=== PATIENT | male | born 1960 | race Caucasian/White ===

== ENCOUNTER → 2016-12-20 19:50 | Outpatient (CLI) | payer OTHER, MEDICARE ==
[2012-09-04 06:06] VITALS: BMI 33.3
[2016-12-22 11:11] LABS: HEPATITIS C ANTIBODY <0.1 (0.0-0.9)
[2016-12-23 16:07] LABS: TESTOSTERONE - SERUM 305 ng/dL (348-1197)
== END | disposition home or self-care (01) ==
LOC: D.LABREF 19:50
PROVIDERS: Family Medicine
DX: Z11.59 Encounter for screening for other viral diseases (principal); E29.1 Testicular hypofunction

== ENCOUNTER → 2016-12-21 15:54 | Outpatient (CLI) | payer OTHER, BC ==
[2012-09-04 06:06] VITALS: BMI 33.3
[2016-12-21 16:10] LABS: ALBUMIN 4.2 g/dL (3.4-5.0); ANION GAP 15.2 mmol/L (8-16); BILIRUBIN - DIRECT 0.07 mg/dL (0.00-0.30); BILIRUBIN - INDIRECT 0.37 mg/dL (0.00-1.00); BILIRUBIN - TOTAL 0.44 mg/dL (0.2-1.3); CALCIUM 9.2 mg/dL (8.5-10.1); CARBON DIOXIDE 27.9 mmol/L (21.0-32.0); CHOL - HDL RATIO 3.1 ratio (2.3-4.9); CREATININE - SERUM 1.2 mg/dL (0.6-1.3); LDL-HDL RATIO 1.6 ratio (1.5-3.5); POTASSIUM - SERUM 5.1 mmol/L (3.5-5.1); PROTEIN - SERUM 7.3 g/dL (6.4-8.2)
== END | disposition home or self-care (01) ==
LOC: D.LABREF 15:54
PROVIDERS: Family Medicine
DX: Z13.6 Encounter for screening for cardiovascular disorders (principal); E78.5 Hyperlipidemia, unspecified

== ENCOUNTER 2018-02-06 06:26 | Day surgery (SDC) | payer OTHER ==
[~2018-02-06] VITALS: Ht 175.3 cm; Wt 117.9 kg
--- NOTE | ~2018-02-06 | OP ---
PATIENT NAME: TOM CERVANTES MEDICAL RECORD: [id number] :62 LOCATION:D.OPS ADMISSION DATE: SURGEON: ARNEL PENALOZA MD DATE OF OPERATION: 02/06/2018 SURGEON: Arnel Penaloza MD ANESTHESIA: MAC by Thien Josue CRNA. PREOPERATIVE DIAGNOSIS: Elevated PSA of 5. PROCEDURE PERFORMED: Transrectal ultrasound and prostate biopsy. FINDINGS: 20 gram prostate. Large median lobe. No hypoechoic areas. SPECIMENS: Prostate biopsy cores. BLOOD LOSS: Minimal. CLINICAL HISTORY: This is a 57-year-old male, who is taking testosterone supplementation for several years. He has documented low serum testosterone levels. His PSA in April of 2017 was 0.75. In December of this year, the PSA was obtained and it was up to 5.0. It was repeated 1 week later and the PSA was still over 4. He comes now to have a prostate biopsy. There is no family history of prostate cancer. He is allergic to PENICILLIN. He was given Levaquin IV extrusion bender to the OR. DESCRIPTION OF PROCEDURE: The patient was given IV sedation. He was placed in the dorsal lithotomy position and prepped and draped. The transrectal ultrasound probe was introduced and prostate size measurements were obtained. The prostate was rather flat and broad. There was a prominent median lobe, which was seen. No hypoechoic areas were seen. Sextant biopsies were obtained with at least 3 cores from each sextant. Once the specimens were all obtained, the procedure was terminated. RECOMMENDATIONS: The patient will be going home today. I will see him in followup next week to review the pathology results with him. TRANSINT:[id number] Voice Confirmation ID: [id number] DOCUMENT ID: [id number] ARNEL PENALOZA MD at 1037 CC: [id number] DICTATION DATE: 02/06/18 1007 MANAGER MULTICULTURAL: 02/06/18 1052 [facility] 02/06/18 [place] [address]
[~2018-02-06 06:26] MED LIST: LEVOTHYROXINE100 MCG PO; LIPITOR40 MG PO; PROTONIX40 MG PO
[2018-02-06 06:58] LABS: HEMATOCRIT 48.9 % (42.0-54.0); HEMOGLOBIN 16.9 g/dL (13.5-17.5); MCH 30.1 pg (26.0-34.0); MCHC 34.6 g/dL (31.0-37.0); MCV 87.2 fL (80.0-100.0); MEAN PLATELET VOLUME 10.6 fL (7.4-10.4); RBC 5.61 10x6/uL (4.20-6.10); RDW 13.6 % (11.5-14.5); WBC 7.9 10x3/uL (4.8-10.8)
[2018-02-06 08:16] VITALS: BP 127/87; Ht 175.3 cm; Wt 117.9 kg
== END 2018-02-06 11:25 | disposition home or self-care (01) ==
LOC: D.OPS 06:26 → D.PAN 12:15
PROVIDERS: Anesthesiology
DX: R97.20 Elevated prostate specific antigen [PSA] (principal); E03.9 Hypothyroidism, unspecified; K21.9 Gastro-esophageal reflux disease without esophagitis; Z01.812 Encounter for preprocedural laboratory examination; E66.01 Morbid (severe) obesity due to excess calories; Z68.38 Body mass index [BMI] 38.0-38.9, adult

== ENCOUNTER 2018-09-12 07:42 | Outpatient (CLI) | payer OTHER ==
[~2018-09-12] VITALS: Ht 175.3 cm; Wt 122.7 kg
--- NOTE | ~2018-09-12 | HEMODYNAMI ---
PATIENT:TOM CERVANTES MEDICAL RECORD: [id number] : 62 LOCATION:ALEXANDRA ADMISSION DATE: 09/12/18 Generatedon:09/12/201810:42 Patient name: TOM CERVANTES Patient #: [id number] SSN: : 1960 Date of study: 09/12/2018 Page: Of Hemodynamic Procedure Report Patient Data Patient Demographics Procedure consent was obtained First Name: TOM Gender: Male Last Name: BILLY : 1960 [facility] Initial: KEELEY Age: 57 year(s) Patient #: [id number] Race: Unknown Additional ID: [id number] Contact details Address: [place] State: [place] City: [place] Zip code: [address] Past Medical History Allergies Allergen Reaction Date Comments Reported Other allergy 09/12/2018 N Admission Admission Data Admission Date: 09/12/2018 Admission Time: 7:42 Height (in.): 70 BSA: 2.37 (m2) Height (cm.): 177.8 BMI: 38.74 (kg/m2) Weight (lbs.): 270 Weight (kg.): 122.47 Lab Results Lab Result Date: 09/12/2018 Lab Result Time: 0:00 Biochemistry Name Units Result Min Max BUN mg/dl 16 --(---*)-- 7 18 Creatinine mg/dl 1.3 --(---*)-- 0.6 1.3 CBC Name Units Result Min Max Hemoglobin g/dl 17 --(---*)-- 13.5 17.5 Procedure Procedure Types Cath Procedure Diagnostic Procedure LHC LHC w/Coronaries FFR/IVUS Intra-Coronary IVUS Initial Sedation Charges Moderate Sedation up to 15 minutes PCI Procedure Coronary Stent Coronary Stent Initial x2 Procedure Description Procedure Date Procedure Date: 09/12/2018 Procedure Start Time: 10:16 Procedure End Time: 10:35 Procedure Staff Name Function Luigi Sheriff MD Performing Physician Virginia Borja RT Monitor Sebastian Velazquez RN Nurse Virginia Borja RT Scrub Akua Dela Cruz RT Scrub Akua Dela Cruz RT Monitor Procedure Data Cath Procedure Fluoroscopy Diagnostic fluoroscopy Total fluoroscopy Time: 5.4 time: 5.4 min min Diagnostic fluoroscopy Total fluoroscopy dose: dose: 1558 mGy 1558 mGy Contrast Material Contrast Material Type Amount (ml) Isovue 300 133 Entry Location Entry Primary Successful Side Size Upsize Upsize Entry Closure Barron ccessful Closure Location (Fr) 1 (Fr) 2 (Fr) Remarks Device Remarks Radial Right 6 Fr Mechanical artery Short Compression Estimated blood loss: 5 ml Diagnostic catheters Device Type Used For End Catheter Placement DIAGNOSTIC [place] 110cm 5 Multi-vessel Fr catheter ([id number]) Angiography Procedure Complications No complications Procedure Medications Medication Administration Route Dosage Oxygen etCO2 Nasal cannula 2 l/min Lidocaine 2% added to field 20 Heparin Flush Bag added to field 2 bags (1000units/500ml NS) 0.9% NaCl I.V. 100 ml/hr Versed I.V. 2 mg Fentanyl I.V. 100 mcg Fentanyl I.V. 50 mcg Versed I.V. 1 mg Heparin Bolus I.V. 4000 units Versed I.V. 1 mg Fentanyl I.V. 50 mcg Radial Cocktail I.A. 1 syringe (Verapomil 2mg/Nitro 400mcg/Heparin 1500units) Hemodynamics Rest BSA: 2.37 (m2) O2 Consumption: Estimated: 278.53 (ml/min) O2 Consumption indexed : Estimated:117.52 (ml/min/m) Heart Rate: 68 (bpm) Pressure Samples Time Site Value (mmHg) Purpose Heart Use Rate(bpm) 10:19 LV 107/52,71 Snapshot 80 Snapshots Pre Cath Intra NCS Post Cath Vital Signs Time Heart Resp SPO2 etCO2 NIBP (mmHg) Rhythm Pain Sedation Rate (ipm) (%) (mmHg) Status Level (bpm) 9:51:27 70 20 96 0 132/93(105) NSR 0 (11) 10(A) , No pain 9:55:35 65 18 95 0 131/96(112) NSR 0 (11) 10(A) , No pain 9:59:47 71 17 95 0 122/79(102) NSR 0 (11) 10(A) , No pain 10:03:59 66 15 94 42 130/73(100) NSR 0 (11) 10(A) , No pain 10:12:39 70 13 94 15 161/63(118) NSR 0 (11) 9(A) , No pain 10:17:02 69 15 93 24.8 127/74(105) NSR 0 (11) 9(A) , No pain 10:21:59 65 13 93 15 128/67(109) NSR 0 (11) 9(A) , No pain 10:26:06 70 13 94 36 121/78(101) NSR 0 (11) 9(A) , No pain 10:30:18 73 13 96 32.3 137/72(109) NSR 0 (11) 9(A) , No pain 10:08:36 72 11 95 15.7 120/71(113) NSR 0 (11) 9(A) , No pain 10:36:53 71 13 94 36.8 137/81(104) NSR 0 (11) 10(A) , No pain Medications Time Medication Route Dose Verified Delivered Reason Not es Effectiveness by by 9:49:00 Oxygen etCO2 2 l/min Luigi Buffie used for Nasal Jaziel Velazquez RN procedure cannula 9:49:07 Lidocaine 2% added 20ml Luigi Buffie for local to vial Jaziel Velazquez RN anesthetic field 9:50:15 Heparin Flush added 2 bags Luigi Buffie used for Bag to Jaziel Velazquez RN procedure (1000units/500ml field NS) 9:50:24 0.9% NaCl I.V. 100 Luigi Buffie Per physician ml/hr Jaziel Velazquez RN 10:04:39 Versed I.V. 2 mg Luigi Buffie for sedation Jaziel Velazquez RN 10:04:44 Fentanyl I.V. 100 mcg Luigi Buffie for sedation Jaziel Velazquez RN 10:09:50 Fentanyl I.V. 50 mcg Luigi Buffie for sedation Jaziel Velazquez RN 10:09:54 Versed I.V. 1 mg Luigi Buffie for sedation Jaziel Velazquez RN 10:18:52 Radial Cocktail I.A. 1 Luigi Buffie for (Verapomil syringe Jaziel Velazquez RN vasodilation 2mg/Nitro 400mcg/Heparin 1500units) 10:23:53 Heparin Bolus I.V. 4000 Luigi Buffie for nestor ified units Jaziel Velazquez RN anticoagulation with dr sheriff 10:29:24 Versed I.V. 1 mg Luigi Cortes for sedation Jaziel Velazquez RN 10:29:27 Fentanyl I.V. 50 mcg Luigi Cortes for sedation Jaziel Velazquez RN Procedure Log Time Note 9:32:05 Patient Height : 70 inches 9:32:11 Patient Weight : 270 lbs 9:34:29 Lab Result : Hemoglobin 17 g/dl 9:34:29 Lab Result : Creatinine 1.3 mg/dl 9:34:29 Lab Result : BUN 16 mg/dl 9:35:14 Diagnostic Cath status Elective 9:35:16 Akua Dela Cruz RT(R) sent for patient. Start room use. 9:35:18 Time tracking: Regular hours (M-F 7:00 - 5:00) 9:35:23 Plan of Care:Hemodynamics will remain stable., Cardiac rhythm will remain stable., Comfort level will be maintained., Respiratory function will remain adequate., Patient/ family verbilizes understanding of procedure., Procedure tolerated without complication., Recovers from procedure without complications.. 9:35:40 Patient received from Pre/Post Procedure Room to CCL 2 Alert and oriented. Tansferred to table in Supine position. 9:35:41 Warm blankets applied, and christina hugger turned on for patient comfort. 9:35:42 Correct patient and procedure confirmed by team. 9:35:44 Signed procedure consent form obtained from patient. 9:35:46 ECG and BP/O2 sat monitors applied to patient. 9:35:53 H&P Date Dictated: 09/10/2018 Within 30 days and on chart., H&P Addendum completed by physician on day of procedure. (MUST COMPLETE FOR ALL OUTPATIENTS). 9:35:55 Pre-procedure instructions explained to patient. 9:35:57 Family in waiting room. 9:35:58 Patient NPO since Midnight. 9:36:11 Patient allergic to Other allergyPCN 9:36:20 Is the patient allergic to Iodine/contrast media? No. 9:36:23 Was the patient premedicated? Yes 9:36:34 Is patient on blood thinner?Yes 9:36:38 ACC The patient was administered the following blood thiners within the last 24 hours: ACCPlavix 9:36:42 Patient diabetic? No. 9:48:02 Previous problem with sedation/anesthesia? No ? 9:48:04 Snore? Yes 9:48:04 Sleep apnea? No 9:48:05 Deviated septum? No 9:48:06 Opens mouth fully? Yes 9:48:07 Sticks out tongue? Yes 9:48:08 Airway obstruction? No ? 9:48:11 Dentures? No ? 9:48:47 Pre procedure: right dorsailis pedis pulse 2+ Normal; easily identifiable; not easily obliterated 9:48:51 Pre procedure: left dorsailis pedis pulse 2+ Normal; easily identifiable; not easily obliterated 9:48:54 Patient pain scale 0/10 ?. 9:49:00 Oxygen 2 l/min etCO2 Nasal cannula was administered by Sebastian Velazquez RN; used for procedure; 9:49:05 IV patent on arrival in left forearm with 0.9% NaCl at [facility]. 9:49:07 Lidocaine 2% 20ml vial added to field was administered by Sebastian Velazquez RN; for local anesthetic; 9:49:07 Lab results completed and on chart. 9:49:11 Right Radial & Right Groin area was prepped with chlora-prep and draped in sterile fashion 9:49:13 Sharps counted by scrub and verified by R.N. 9:49:13 Alarms reviewed by R. N. 9:50:15 Heparin Flush Bag (1000units/500ml NS) 2 bags added to field was administered by Sebastian Velazquez RN; used for procedure; 9:50:24 0.9% NaCl 100 ml/hr I.V. was administered by Sebastian Velazquez RN; Per physician; 9:50:28 Vital chart was started 10:02:49 Physician arrived 10:02:50 --------ALL STOP TIME OUT------ 10:02:51 Final Timeout: patient, procedure, and site verified with staff and physician. All members of the team are in agreement. 10:02:55 Right Radial & Right Groin site verified by team. 10:02:58 Physical assessment completed. ASA score P 2 - A patient with mild systemic disease as per Luigi Sheriff MD. 10:03:01 Sedation plan: IV Moderate Sedation Medication:Versed, Fentanyl 10:03:46 Use device set Radial Dx or PCI 10:03:47 ACIST Syringe (57769) opened to sterile field. 10:03:47 Medline Cath Pack ([id number]) opened to sterile field. 10:03:48 Bag Decanter (2002) opened to sterile field. 10:03:48 DIAGNOSTIC WIRE .035 260cm J wire (816861) opened to sterile field. 10:03:49 ACIST Hand Control (59615) opened to sterile field. 10:03:49 ACIST Manifold (81957) opened to sterile field. 10:03:50 Tegaderm 4 x 4 (1626W) opened to sterile field. 10:03:51 SHEATH 6FR Slender (56-7812) opened to sterile field. 10:04:39 Versed 2 mg I.V. was administered by Sebastian Velazquez RN; for sedation; 10:04:44 Fentanyl 100 mcg I.V. was administered by Sebastian Velazquez RN; for sedation; 10:09:50 Fentanyl 50 mcg I.V. was administered by Sebastian Velazquez RN; for sedation; 10:09:54 Versed 1 mg I.V. was administered by Sebastian Velazquez RN; for sedation; 10:16:17 Procedure started. 10:16:18 Full Disclosure recording started 10:16:22 Local anesthetic to right radial artery with Lidocaine 2% by Luigi Sheriff MD.INITIAL ACCESS ONLY 10:17:28 Baseline sample Acquired. 10:17:42 A 6 Fr Short sheath was inserted into the Right Radial artery 10:17:47 A DIAGNOSTIC [place] 110cm 5 Fr catheter (531781) was advanced over the wire and used for Multi-vessel Angiography. 10:18:52 Radial Cocktail (Verapomil 2mg/Nitro 400mcg/Heparin 1500units) 1 syringe I.A. was administered by Sebastian Velazquez RN; for vasodilation; 10:19:03 LV hemodynamics recorded. 10:19:04 LV gram done using HINES 10:19:07 Injector settings: Ml/sec: 5, Volume: 15, 10:19:13 EF : 60 % 10:20:03 RCA angiography performed. 10:20:06 Injector settings: Ml/sec: 3, Volume: 6, 10:20:14 Catheter removed. 10:21:08 GUIDE 6FR XBLAD 3.5 catheter ([id number]) opened to sterile field. 10:22:10 6 Fr xblad 3.5 guide catheter was inserted over the wire 10::23 LCA angiography performed. 10::25 Injector settings: Ml/sec: 3, Volume: 6, 10:22:30 Proceeding to intervention. 10::53 CHOICE PT Extra Support 182cm wire ([id number]) opened to sterile field. 10::54 Jesse [place] IVUS Catheter (90803B) opened to sterile field. 10:23:24 Wire advanced across lesion. 10:23:30 IVUS catheter advanced over wire. 10::53 Heparin Bolus 4000 units I.V. was administered by Sebastian Velazquez RN; for anticoagulation; verified with dr sheriff 10::33 IVUS pass to LAD lesion performed. 10::34 IVUS catheter removed over wire. 10:27:21 Place stent Inflation Number: 1 A INTEGRITY RX 3.5 x 18 stent ([id number]) was prepped and advanced across the Prox LAD. The stent was deployed at 15 CHUCK for 0:10 (min:sec). 10:28:10 Stent catheter was removed intact over wire. 10:28:22 Wire removed. 10:28:37 CHOICE PT Extra Support 182cm wire (7710819I0) opened to sterile field. 10:29:10 choice pt wire advanced. 10:29:12 Wire advanced across lesion. 10:29:24 Versed 1 mg I.V. was administered by Sebastian Velazquez RN; for sedation; 10::27 Fentanyl 50 mcg I.V. was administered by Sebastian Velazqeuz RN; for sedation; 10:31:00 Inflate balloon Inflation number: 1 A INTEGRITY RX 3.5 x 15 stent ([id number]) was prepped and advanced across the Prox CX, then inflated to 13 CHUCK for 0:10 (min:sec). 10:32:45 Stent catheter was removed intact over wire. 10:32:46 Wire removed. 10:32:47 Guide catheter removed. 10:33:15 Sheath removed intact; hemostasis achieved with Mechanical Compression to the Right Radial artery. 10:33:16 TR band inflated with 10cc of air. 10:33:17 Procedure ended.(Physican Out) 10:33:36 Fluoroscopy time 05.40 minutes. 10:33:41 Fluoroscopy dose: 1558 mGy 10:33:41 Flurop Dose total: 1558 10:33:46 Contrast amount:Isovue 300 133ml. 10:33:47 Sharps counted by scrub and verified by R.N. 10:33:56 Insertion/operative site no bleeding no hematoma. 10:34:06 Post right radial artery:stable 10:34:07 Post Procedure Pulses reassessed and unchanged 10:34:13 Post procedure rhythm: sinus rhythm 10:34:16 Estimated blood loss: 5 ml 10:34:18 Post procedure instruction explained to patient.Patient verbalizes understanding. 10:34:18 Patient needs reinforcement of post procedure teaching. 10:34:46 Procedure type changed to Cath procedure, Diagnostic procedure, LHC, LHC w/Coronaries, FFR/IVUS, Intra-Coronary IVUS Initial, Sedation Charges, Moderate Sedation up to 15 minutes, PCI procedure, Coronary Stent, Coronary Stent Initial x2 10:34:47 Procedure and supply charges have been captured, reviewed, submitted and are correct. 10:34:51 Procedure Complication : No complications 10:34:54 Vital chart was stopped 10:34:54 See physician's report for complete and final results. 10:34:57 Report given to Pre/Post Procedure Room. 10:34:59 Patient transfered to Pre/Post Procedure Room with Stretcher. 10:35:02 Procedure ended. 10:35:02 Full Disclosure recording stopped 10:35:09 ACC-PCI Only Patient was given prescriptions, or instructed by Luigi Sheriff MD to start/continue the following medications upon discharge: Plavix 10:35:11 End room use (Document Last) 10:36:56 TR BAND Standard ([id number]) opened to sterile field. Intervention Summary Intervention Notes Time ActionType Lesion and Equipment Action# Pressure Duration Attributes Used 10:27:21 Place stent Prox LAD INTEGRITY RX 1 15 00:10 3.5 x 18 stent ([id number]) 10:31:00 Inflate Prox CX INTEGRITY RX 1 13 00:10 balloon 3.5 x 15 stent ([id number]) Device Usage Item Name Manufacture Quantity Catalog Number Hospital Part Current Mini mal Lot# / Charge Number Stock Stock Serial# Code ACIST Acist 1 69928 303086 753322 606182 20 Synker ([id number] Medline Cath Medline 1 [id number] 503823 75129 044853 5 Pack ([id number]) Bag Decanter Microtek 1 2001S 666928 63643 200056 5 () Medical Inc. DIAGNOSTIC St [place] 1 739912 255131 151277 063165 30 WIRE .035 260cm J wire (176892) ACIST Hand Acist 1 09282 494023 430172 136630 5 Control Medical (41386) Systems Inc ACIST Acist 1 28365 483440 580900 004935 5 Manifold Medical (72491) Systems Inc Tegaderm 4 x 3M 1 1626W 474701 996191 422605 5 4 (1626W) SHEATH 6FR Terumo 1 [id number] 453645 006287 947194 5 Slender (80-1060) DIAGNOSTIC Terumo 1 40-2773 045026 705226 225505 5 [place] 110cm 5 Fr catheter (974112) GUIDE 6FR Cardinal 1 [id number] 059541 391047 974302 10 XBLAD 3.5 Health catheter (28088598) CHOICE PT [place] 2 [id number] 661878 300644 466905 5 Extra Scientific Support 182cm wire ([id number]) Jesse Jesse 1 79025U 446641 761463 661898 8 [place] IVUS Catheter (05891K) INTEGRITY RX Medtronic 1 [id number] 697924 759920 529365 5 [id number] 3.5 x 18 stent ([id number]) INTEGRITY RX Medtronic 1 [id number] 226185 673258 041824 5 [id number] 3.5 x 15 stent ([id number]) TR BAND Terumo 1 [id number] 759308 990716 537838 40 Standard ([id number]) Signature Audit [place] Stage Time Signature Unsigned Intra-Procedure 09/12/2018 Akua Dela Cruz 10:42:34 AM RT(R) Signatures Monitor : Virginia Borja Signature : RT Date : Time : Monitor : Akua Dela Cruz RT Signature : Date : Time : [address] [address]
[2018-09-12] MEDS ORDERED: PLAVIX75 MG PO (08:13)
[2018-09-12] MEDS ORDERED: ANASTROZOLE1 MG PO (08:13)
[2018-09-12 08:22] VITALS: BP 148/90; Ht 175.3 cm; Wt 122.7 kg
[2018-09-12 08:30] LABS: BASOPHILS 0.5 % (0-2); EOSINOPHILS 3.8 % (0-7); HEMATOCRIT 48.6 % (42.0-54.0); IMMATURE GRANULOCYTES 0.9 % (0-5); LYMPHOCYTES 30.6 % (15-50); MCH 30.1 pg (26.0-34.0); MCV 86.2 fL (80.0-100.0); MEAN PLATELET VOLUME 10.1 fL (7.4-10.4); NEUTROPHILS 56.2 % (40-80); PLATELET COUNT 264 10x3/uL (130-400); RBC 5.64 10x6/uL (4.20-6.10); RDW 13.5 % (11.5-14.5); WBC 7.6 10x3/uL (4.8-10.8)
[2018-09-12 08:44] LABS: ANION GAP 13.7 mmol/L (8-16); CALCIUM 8.7 mg/dL (8.5-10.1); CARBON DIOXIDE 25.5 mmol/L (21.0-32.0); CREATININE - SERUM 1.3 mg/dL (0.6-1.3); POTASSIUM - SERUM 4.2 mmol/L (3.5-5.1)
[2018-09-12] MEDS ORDERED: BAYER CHEWABLE81 MG PO (11:02)
--- NOTE | 2018-09-12 11:05 | NUR ---
TR BAND IS CDI TO RIGHT WRIST, NO BLEEDING OR HEMATOMA NOTED. FINGERS WARM AND CAP REFILL IS BRISK. PT IS ALERT, SITTING UP IN BED VISITING WITH MULTIPLE FAMILY MEMBERS. DENIES ANY C/O PAIN OR NAUSEA. VSS, RESP WITH EASE ON ROOM AIR. PT KOBY PO FLUIDS WITH NO C/O. SANDWICH AT BEDSIDE, CALL LIGHT IN REACH.
--- NOTE | 2018-09-12 11:21 | NUR ---
PT KOBY SANDWICH WTIH NO C/O NAUSEA. VSS, TR BAND IS CDI. HAND WARM AND CAP REFILL IS BRISK. DENIES NEEDS AT THIS TIME.
--- NOTE | 2018-09-12 11:40 | NUR ---
TR BAND IS CDI, WRIST IMMOBILIZER IN PLACE. FINGERS WARM AND CAP REFILL IS BRISK. NSR, RATE IS 73, DENIES ANY C/O CHEST PAIN. SITTING UP IN BED, VISITING WITH FAMILY.
--- NOTE | 2018-09-12 12:02 | NUR ---
TR BAND CDI, FINGERS WARM AND CAP REFILL IS BRISK. PT DENIES ANY C/O.
--- NOTE | 2018-09-12 12:53 | NUR ---
PT ALERT, SITTING UP IN BED VISITING WITH . NSR, DENIES ANY C/O CHEST PAIN. TR BAND IS CDI, FINGERS WARM, CAP REFILL IS BRISK. DENIES ANY NV DEFICIT. CALL LIGHT IN REACH.
--- NOTE | 2018-09-12 13:33 | NUR ---
3 CC OF AIR WEANED FROM TR BAND WITH NO BLEEDING NOTED. FINGERS WARM AND CAP REFILL IS BRISK. VSS, PT IS ALERT AND DENIES ANY C/O.
--- NOTE | 2018-09-12 13:51 | NUR ---
3 CC OF AIR WEANED FROM TR BAND WITH NO BLEEDING OR HEMATOMA NOTED. PT ALERT AND DENIES ANY C/O.
--- NOTE | 2018-09-12 14:13 | NUR ---
1405 ALL REMAINING AIR HAS BEEN WEANED FROM TR BAND WITH NO BLEEDING NOTED. FINGERS WARM, PULSES PALPABLE. PT DENIES ANY N/V DEFICIT TO HAND. DC INSTRUCTIONS REVIEWED WITH PT AND WHO VERBALIZE UNDERSTANDING. PLAVIX PRESCRIPTION TO PT, PT AND VERBALIZE UNDERSTANDING OF PT STARTING THIS MEDICATION TOMORROW.
--- NOTE | 2018-09-12 14:24 | NUR ---
TR BAND HAS BEEN REMOVED AND 2X2, TEGADERM PLACED TO SITE. IV DC'D WITH CATH INTACT. PT DRESSING FOR DC WITH ASSIST.
--- NOTE | 2018-09-12 15:27 | NUR ---
1430 PT HAS AMBULTED TOT HE BATHROOM AND VOIDED QS. DENIES ANY C/O. DRESSING CDI TO RIGHT WRIST, WRIST IMMOBILIZER IN PLACE. PT ESCORTED TO PRIVATE AUTO VIA WC BY NURSE WITH DRIVING HIM HOME.
--- NOTE | 2018-09-16 10:22 | OP ---
PATIENT NAME: TOM CERVANTES MEDICAL RECORD: [id number] :62 LOCATION:D.CAT ADMISSION DATE: SURGEON: AMANDA MOSHER MD DATE OF OPERATION: 09/12/2018 PROCEDURES: 1. PTCA and stent of left circumflex. 2. PTCA and stent of LAD. 3. Intravascular ultrasound. 4. Left heart catheterization. 5. Selective coronary angiography. 6. Left ventriculogram. INDICATION: Angina and coronary artery disease. PROCEDURE IN DETAIL: After informed consent was obtained and after detailed explanation of risks, benefits as well as alternative therapies, the patient elected to proceed with angiogram and angioplasty. The right radial area was prepped and draped in normal sterile fashion. Right radial artery was cannulated via modified Seldinger technique with placement of 6-Kinyarwanda sheath. All catheters exchanged through this sheath. FINDINGS: Left ventriculogram was performed in standard 30-degree HINES view, reveals good cardiac wall motion throughout all segments. Overall ejection fraction estimated at 55% to 60%. SELECTIVE CORONARY ANGIOGRAPHY: 1. Left main is with no significant angiographic disease. 2. Left anterior descending has 76% stenosis in the proximal vessel confirmed by intravascular ultrasound. 3. The left circumflex has 70% to 80% stenosis in the mid vessel. 4. Right coronary has mild irregularities, but no flow-limiting stenosis. PTCA AND STENT OF THE LAD AND CIRCUMFLEX: The LAD was addressed with a 3.5 x 18-mm Integrity and the circumflex with a 3.5 x 15-mm Integrity. Result was 0% residual stenosis. OVERALL IMPRESSION: Successful PTCA and stent of the LAD and circumflex, both going from 70% to 80% initial stenosis to 0% residual. TRANSINT:[id number] Voice Confirmation ID: [id number] DOCUMENT ID: [id number] AMANDA MOSHER MD at 1022 CC: [id number] DICTATION DATE: 09/12/18 1036 SERVICE OFFICER: 09/12/18 1052 DEP CLI 09/12/18 [place] [id number] [place] [address]
== END 2018-09-12 14:30 | disposition home or self-care (01) ==
LOC: D.CATH 07:42
PROVIDERS: Internal Medicine Interventional Cardiology
DX: I25.110 Atherosclerotic heart disease of native coronary artery with unstable angina pectoris (principal)

== ENCOUNTER → 2019-07-02 11:37 | Outpatient (CLI) | payer OTHER ==
[2018-09-12 08:22] VITALS: BMI 39.9
[~2019-07-02 11:37] MED LIST changes: +ANASTROZOLE1 MG PO; +BAYER CHEWABLE81 MG PO; +PLAVIX75 MG PO
--- NOTE | 2019-07-08 10:41 | ST ---
PATIENT:TOM CERVANTES MEDICAL RECORD: [id number] SEX: M LOCATION:[facility] ORDER #: ADMISSION DATE: 07/02/19 AGE OF PATIENT: 58 REFERRING PHYSICIAN: INTERPRETING PHYSICIAN: AMANDA MOSHER MD DATE OF SERVICE: 07/02/2019 PROCEDURE: Nuclear stress test. INDICATION: Angina and coronary artery disease, shortness of breath, and hyperlipidemia. He was exercised on standard Tai protocol for 7 minutes 45 seconds achieving 85% max target heart rate response with 27 mCi sestamibi injected at peak stress, 9 mCi used previously for rest images. FINDINGS: Gated SPECT reveals preserved ejection fraction at 60% with good wall motion and thickening and brightening throughout all segments. SPECT imaging Cardiolite was used as myocardial fusion agent. There is homogeneous uptake throughout all segments at rest and stress with no evidence of inducible ischemia or previous infarction. OVERALL IMPRESSION: 1. This is a normal nuclear stress test with no evidence of inducible ischemia or previous infarction. 2. Gated SPECT reveals a preserved ejection fraction at 60%. In this patient with ongoing symptomatology, the current scan does not suggest the presence of hemodynamically significant coronary artery disease. Evaluate noncardiac etiology of chest pain. TRANSINT:[id number] Voice Confirmation ID: [id number] DOCUMENT ID: [id number] AMANDA MOSHER MD at 1041 CC: [id number] DICTATION DATE: 07/03/19818 ASSEMBLER HANDBAGS: 07/04/19 0112 DEP CLI 07/02/19 [place] [id number]
== END | disposition home or self-care (01) ==
LOC: D.HCCARDIO 11:37
PROVIDERS: ATTEND Internal Medicine Interventional Cardiology
DX: I25.119 Atherosclerotic heart disease of native coronary artery with unspecified angina pectoris (principal)